=== PATIENT | female | born 1970 | race Caucasian/White ===

== ENCOUNTER → 2016-10-25 | Outpatient (CLI) | payer MEDICAID ==
[~2016-10-25] MED LIST: ENOX40DI SQ; HYDR-3989 PO; IBUP-1547 PO; PREN1TAB77 PO
== END ==
LOC: WC.BC 15:57
DX: Z12.31 Encounter for screening mammogram for malignant neoplasm of breast (principal)

== ENCOUNTER 2016-11-23 20:37 | Emergency (ER) | payer MEDICAID ==
[~2016-11-23] VITALS: Ht 172.7 cm; Wt 125.0 kg
[2016-11-23 20:38] VITALS: Ht 172.7 cm; Wt 125.0 kg
--- NOTE | 2016-11-23 20:45 | NUR ---
PROVIDER Tarik FERNANDO RETAIL DISTRICT MANAGER IN TO SEE PATIENT.
[2016-11-23] MEDS ORDERED: METO25TA6 (20:52)
[2016-11-23] MEDS ORDERED: VENL-68 (20:52)
--- NOTE | 2016-11-23 20:53 | ERPDOC ---
Departure Disposition Decision Date: Nov 23, 2016 Disposition Decision Time: 21:11 (KASSIECRISTOBAL Norris APRN) Disposition: 01 DISCHARGED HOME, SELF-CARE Impression Impression (ALBALUISACRISTOBAL Norris APRN) Impression: Primary Impression: Knee pain, acute Laterality: left Qualified Codes: M25.562 - Pain in left knee Severity: Moderate (CRISTOBAL FERNANDO APRN) Condition: Stable Seen By: Mid-level only (CRISTOBAL FERNANDO APRN) Referrals: GALILEA HUBER MD (Family) Patient Instructions: Knee Pain (ED) Problems/Meds/Labs Reviewed?: Yes Medications reviewed and manag: Yes (CRISTOBAL FERNANDO APRN) Additional Instructions: Your xray today was normal. No fracture was identified. I do want you to rest the knee and may ice or warm pack to the knee or back as needed. Use the [place] as needed for pain at home. May also use the Naproxen on a schedule as prescribed as well. If any further issues/concerns then please follow up with your primary care provider as you may need an MRI. Follow up care ordered?: Yes Mental Status: Alert, Oriented (CRISTOBAL FERNANDO APRN) Scripts Hydrocodone/Acetaminophen (Pennington 5-325 Tablet) 5-325 Tablet 1 TAB PO Q6H Y for PAIN, #12 TAB 0 Refills Prov: KASSIECRISTOBAL Norris APRN 11/23/16 HPI General Chief Complaint: Lower Extremity Pain Stated Complaint: BACK PAIN,LFT KNEE PAIN Time Seen by Provider: 20:39 Source: patient Exam Limitations: no limitations (CRISTOBAL FERNANDO APRN) Time Seen by Provider: 20:39 (JARVIS HERNANDEZ MD) HPI Knee Initial Comments Earlier today she felt a pop in the left knee. Has had pain in the left medial aspect of the knee since then with weight bearing and palpation of the knee where it hurts. She does have a history of a meniscal tear but no fracture in the knee. She has recently lost 50 pounds and had been having much less trouble with her knees and back until today. Yesterday had noticed that her back was feeling tight as well. Has had her back "go out" once in the past. Has not had any fall or trauma to her back that she recall. Occurred At: home Onset: Rapid Duration: 4-6 hrs Severity: moderate Method of Injury: unknown Associated Symptoms: pain, DENIES: clicking, locking, numbness, popping, redness, stiffness, swelling, unable to bend, unable to straighten, weakness ( NOLD,CRISTOBAL N FIRE MANAGEMENT OFFICER) Allergies: Coded Allergies: sulfamethoxazole (Verified Allergy, Severe, SWELLING, 03/27/15) TOUNGE SWELLS. trimethoprim (Verified Allergy, Severe, SWELLING, 03/27/15) TOUNGE SWELLS. Past History Past Medical History Musculoskeletal: back pain, other (meniscal tear) (NOLD,CRISTOBAL N FIRE MANAGEMENT OFFICER) Surgical History Denies Surgeries (NOLD,CRISTOBAL N FIRE MANAGEMENT OFFICER) Family History Family History: Negative (NOLD,CRISTOBAL N FIRE MANAGEMENT OFFICER) Vaccines Hx Influenza Vaccination: No Hx Tetanus, Diptheria, Pertuss: Yes (02/27/15) (NOLD,CRISTOBAL N FIRE MANAGEMENT OFFICER) Social History Smoking Status: Never smoker Substance Use Type: does not use Alcohol Intake: none (NOLD,CRISTOBAL N FIRE MANAGEMENT OFFICER) Review of Systems Constitutional Constitutional: DENIES: chills, fever (NOLD,CRISTOBAL N FIRE MANAGEMENT OFFICER) Musculoskeletal General: joint pain (left knee pain), joint swelling (mildly-left knee), pain ( left knee pain), tenderness (medial aspect of the knee, inferior aspect) (NOLD, CRISTOBAL N FIRE MANAGEMENT OFFICER) Integumentary Skin: DENIES: color change, lesion (NOLD,CRISTOBAL N FIRE MANAGEMENT OFFICER) Neurological General: DENIES: numbness, tingling, weakness (NOLD,CRISTOBAL N FIRE MANAGEMENT OFFICER) Exam General General Nourishment: well nourished, well developed, appears stated age, no acute distress, adult General Body Habitus: well groomed Vital Signs: RN Vital Signs have been reviewed: Yes, Temperature: 98.4, Source : Oral, Heart Rate: 76, Respiratory Rate: 16, BP: 134/70, Pulse Oximetry: 98 Height (Feet): 5 Height (Inches): 8.00 (NOLD,CRISTOBAL N FIRE MANAGEMENT OFFICER) Fastrak Knee Knee : Knee: Left Inspection: position of comfort (full ROM, has left knee in full extension) , swelling (mild swelling on the left medial inferior aspect of the knee), NOT FOUND: discoloration, erythema, pallor Palpation: tender med. joint line, NOT FOUND: cool, tender lat. joint line, tender patella, warm ROM: extension to 180 degrees, flexion to 0 degrees, NOT FOUND: clicking, locking, popping Neuro: soft touch intact, strength Dorsalis Pedis pulse: 2+ (CRISTOBAL FERNANDO APRN) Neurologic RN Documented GCS Eye Opening: Verbal: Motor: Total: (CRISTOBAL FERNANDO APRN) Differential Diagnoses Considering: Contusion, Fracture, Ligament Tear ACL, Ligament Tear PCL, Meniscal Injury, Sprain, Strain, Tibial Plateau Fracture (CRISTOBAL FERNANDO APRN) Progress Results/Orders Orders Procedure Category Date Status Time Knee Left 3 Views RAD 11/23/16 Taken Orphenadrine (Norflex) PHA 11/23/16 Complete 21:15 Ketorolac (Toradol) PHA 11/23/16 Complete 21:15 (JARVIS HERNANDEZ MD) Medications Current ED Medications Orphenadrine Citrate (Norflex) 60 mg O ONCE IM Last administered on 11/23/16 21:16; Start 11/23/16 at 21:15; Stop 11/23/16 at 21:16; Status DC Ketorolac Tromethamine (Toradol) 60 mg O ONCE IM Last administered on 21:16; Start 11/23/16 at 21:15; Stop 11/23/16 at 21:16; Status DC (JARVIS HERNANDEZ MD) Medications Current ED Medications Orphenadrine Citrate (Norflex) 60 mg O ONCE IM Last administered on 11/23/16 21:16; Start 11/23/16 at 21:15; Stop 11/23/16 at 21:16; Status DC Ketorolac Tromethamine (Toradol) 60 mg O ONCE IM Last administered on 21:16; Start 11/23/16 at 21:15; Stop 11/23/16 at 21:16; Status DC (CRISTOBAL FERNANDO APRN) Progress Progress Her xray of her knee today was without fracture. Will have her ice and elevate. [place] as needed for pain. Will give her an injection of Toradol and Norflex for her knee and her back here in ER. I did talk with her that if this is not improving over the next few days then to please follow up with her primary care provider as she may need an MRI. (CRISTOBAL FERNANDO APRN) Xray Xray : Reason for Exam: left knee pain Xray: Knee L Interpretation: Normal (CRISTOBAL FERNANDO APRN) Xray : Xray: Knee L Interpretation: Normal, Interpreted by Me (degenerative changes no acute fractures or dislocations noted) (JARVIS HERNANDEZ MD) CRISTOBAL FERNANDO APRN Nov 23, 2016 20:53 JARVIS HERNANDEZ MD Nov 23, 2016 21:57
--- NOTE | 2016-11-23 20:54 | NUR ---
XRAY PORTABLE BEING DONE IN ROOM AT THIS TIME.
[2016-11-23] MEDS ORDERED: HYDR-4246 PO (21:13)
[2016-11-23] MEDS ORDERED: ORPHENADRINE 60mg/2ml INJECTION IM ONE (21:15)
[2016-11-23] MEDS ORDERED: KETOROLAC 60mg/2ml INJECTION IM ONE (21:15)
--- NOTE | 2016-11-23 21:15 | NUR ---
PROVIDER Tarik FERNANDO DIRECTOR [employer]LLIGENCE IN TO SEE PATIENT.
[2016-11-23 21:29] VITALS: BP 112/56; PULSE 67; RESP 16; TEMP 98.4; O2SAT 100
--- NOTE | 2016-11-24 09:22 | DI ---
Indication: ITS.REASON: LEFT KNEE PAIN PROCEDURE: KNEE LEFT 3 VIEWS: Encounter: Initial Comparison: None Findings: There is no acute fracture, dislocation or malalignment identified. Mild medial and patellofemoral compartment joint space narrowing. Impression: No acute osseous abnormality. .
== END 2016-11-23 21:29 | disposition home or self-care (01) ==
LOC: ED 20:37
DX: M25.562 Pain in left knee (principal); M54.9 Dorsalgia, unspecified
CPT/HCPCS: 73562; 96372; 99283; J1885; J2360